=== PATIENT | female | born 2000 | race Caucasian/White ===

== ENCOUNTER 2021-12-16 18:04 | Emergency (ER) | payer BC, SELFPAY ==
[2021-12-16 18:06] VITALS: BP 132/91; PULSE 91; RESP 16; TEMP 37; O2SAT 99; BMI 19.8
[2021-12-16 19:09] VITALS: BP 132/91; PULSE 91; RESP 16; TEMP 37; O2SAT 99
--- NOTE | 2021-12-16 20:23 | EKG12_ITS ---
Test Reason : ABD PAIN Blood Pressure : / mmHG Vent. Rate : 058 BPM Atrial Rate : 058 BPM P-R Int : 130 ms QRS Dur : 090 ms QT Int : 420 ms P-R-T Axes : 086 067 041 degrees QTc Int : 412 ms Sinus bradycardia Nonspecific ST abnormality Abnormal ECG Confirmed by LEANNA FERNANDEZ, HEYDI ([id number]), online editor LAE WILSON ([id number]) on 12/18/2021 12:46:21 PM Referred By: Confirmed By:HEYDI RAM MD
--- NOTE | 2021-12-16 20:24 | EX.ED.DYSGE1 ---
HPI History of Present Illness Chief Complaint: Diarrhea Narrative Narrative: 21-year-old female with no significant medical history presenting for evaluation of some blood in her stool today and yesterday. She states he had 2 episodes of this. She denies any abdominal pain or rectal pain with this. She states she just finished her menstrual period yesterday and it was on time and normal. She had no change in this. Patient reports that she was evaluated in July of this year for a nearly 60 pound weight loss over few months. She had blood work done and the only abnormality was her bilirubin was slightly elevated. They checked her B12, CBC, CRP. She had a total abdominal ultrasound. She states that she was told she was fine and that the negative CRP actually was reassuring. She does report that she has a family history with her mother and father of Crohn's disease. She herself does not have this. She does state that she has not had any change in her weight since July. She is not experiencing any abdominal pain, nausea, vomiting. She states that the last 2 weeks she is actually felt better than she has in months. She does state that about 2 weeks ago she had 1 episode of fainting while she was standing in the kitchen with her significant other and 1 episode the next day. She is not had a repeat of these episodes of syncope. She does not report any chest pain or shortness of breath. No history of sudden cardiac in the family. PFS PFS Medical History no medical history Home Medications NK 12/16/21 [History Last Taken Unknown] Allergy/AdvReac Type Severity Reaction Status Date / Time No Known Allergies Allergy Verified 12/16/21 18:06 Social History Smoking Status: Current every day smoker tobacco type: e-cigarettes ROS ROS ED Constitutional Constitutional ED: Reports weight loss; Denies chills or fever(s) Eyes Eyes: Denies change in vision ENT ENT ED: Denies rhinorrhea or sore throat Cardiovascular Cardiovascular: Denies chest pain Respiratory/Chest Respiratory/Chest: Denies cough Gastrointestinal Gastrointestinal: Reports diarrhea; Denies abdominal pain, nausea or vomiting Genitourinary Genitourinary ED: Denies dysuria or hematuria Musculoskeletal Musculoskeletal: Denies arthralgias Integumentary Denies abscess Neurologic Neurologic: Denies headache(s) or paresthesias Psychiatric Psychiatric: Denies anxiety or depression EXAM Physical Exam Const Vital Signs: 12/16/21 18:06 12/16/21 19:09 12/16/21 20:46 Temperature 98.6 F 98.6 F Temperature Source Temporal Temporal Pulse Rate 91 91 Pulse Rate [Lying] 56 L Pulse Rate [Sitting (for 1 minute prior to obtaining)] 63 Pulse Rate [Standing (for 1 minute prior to obtaining)] 72 Respiratory Rate 16 16 Blood Pressure 132/91 H 132/91 H Blood Pressure [Lying] 122/72 H Blood Pressure [Sitting (for 1 minute prior to obtaining)] 135/92 H Blood Pressure [Standing (for 1 minute prior to obtaining)] 134/77 H Blood Pressure Mean 104 Blood Pressure Mean [Lying] 88 Blood Pressure Mean [Sitting (for 1 minute prior to obtaining)] 106 Blood Pressure Mean [Standing (for 1 minute prior to obtaining)] 96 Pulse Ox 99 99 Oxygen Delivery Method Room Air Room Air Positive well nourished General Appearance ED: NAD; Negative for pallor HEENT Reports moist mucous membranes Negative for trauma Eyes PERRL and EOMs intact bilaterally General Eye ED: Negative for pale conjunctiva or scleral icterus Chest Wall inspection of chest normal Resp normal respiratory effort and clear to auscultation bilaterally Auscultation: Negative for rales, rhonchi or wheezes Cardio regular rate and regular rhythm GI normal to inspection, nondistended, normoactive bowel sounds Palpation: soft Extremity normal to inspection General Extremety ED: Negative for edema General Extremity: Negative for edema Neuro oriented x3 and CN's II-XII intact bilaterally Sensorium / Orientation: alert Psych mental status grossly normal Skin no rashes or lesions noted General Skin Exam: Negative for jaundice or pallor MDM MDM MDM Narrative Medical decision making narrative: Patient presenting with diarrhea which has been a chronic issue. She does have blood in her stool today but denies any pain associated with it. She had some episodes of syncope 2 weeks ago but is not a return of this. Not lightheaded today. I did orthostatic vital signs and these are normal. EKG was obtained to rule out cardiac source and this is sinus bradycardia with a ventricular to 58 bpm without signs of ischemic change or dysrhythmia. This is on my interpretation. CBC shows a white blood cell count of 6.1, hemoglobin 12.4, hematocrit 37.1, platelets 23. Renal function and electrolytes are normal. Total bilirubin is 2.3 but patient was able to pull this up on her phone and she had this on her previous visit in July. This is unclear etiology but is not new. LFTs are otherwise normal. Urinalysis negative for infection. Patient's evaluation ultimately normal. Although the patient had some blood in her stool she is not orthostatic and she does not have anemia and she does not need a blood transfusion. I feel she be stable for outpatient follow-up. I recommended to her that she follow-up with GI. I will give her referral to Dr. Bloom. Patient stable for discharge at this time. Impression: 1. Hematochezia 2. History of syncope 3. Diarrhea 4. Elevated bilirubin Lab Data Attestation: I reviewed the patient's lab results. Labs: Laboratory Results - last 24 hr 12/16/21 12/16/21 12/16/21 18:45 18:45 18:45 WBC 6.1 RBC 4.19 L Hgb 12.4 Hct 37.1 MCV 88.5 MCH 29.6 MCHC 33.4 RDW Std Deviation 39.8 RDW Coeff of Bhavik 12.2 Plt Count 183 MPV 12.4 H Immature Gran % (Auto) 0.200 Neut % (Auto) 54.4 Lymph % (Auto) 35.4 [place] % (Auto) 8.2 Eos % (Auto) 1.1 Baso % (Auto) 0.7 Absolute Neuts (auto) 3.3 Absolute Lymphs (auto) 2.17 Nucleated RBC % 0 Sodium 141 Potassium 3.7 Chloride 109 H Carbon Dioxide 26.0 Anion Gap 6 BUN 8 Creatinine 0.87 Estim Creat Clear Calc 95.43 Est GFR (MDRD) Af Amer 106 Est GFR (MDRD) Non-Af 88 BUN/Creatinine Ratio 9.2 L Glucose 83 Calcium 9.0 Total Bilirubin 2.30 H AST 19 ALT 18 Alkaline Phosphatase 44 L Total Protein 7.0 Albumin 4.1 Globulin 2.9 Albumin/Globulin Ratio 1.4 Urine Color Yellow Urine Clarity Clear Urine pH 6.5 Ur Specific [place] 1.010 Urine Protein 15 H Urine Glucose (UA) Normal Urine Ketones Negative Urine Occult Blood Negative Urine Nitrite Negative Urine Bilirubin Negative Urine Urobilinogen Normal Ur Leukocyte Esterase Negative Urine RBC 0 SEEN Urine WBC 0 SEEN Ur Squamous Epith Cells 0-5 SEEN Urine Bacteria 0 SEEN Urine Mucus 1+ Discharge Plan Triage Chief Complaint: Diarrhea ED Provider: Sal Morgan Dx/Rx/DC Orders Prescriptions: No Action NK Primary Care Provider: WAI BERG Referrals: [facility] Doctor,Out of [NON-STAFF] -
[2021-12-16 20:34] LABS: Absolute Lymphocyte Count 2.17 X10^3/uL (0.83-4.51); Absolute Neutrophil Count 3.3 X10^3/uL (2.0-7.7); Bacteria 0 SEEN /hpf (None Seen); Basophil# 0.04 X10^3/uL; Basophil% 0.7 % (0-1); Eosinophil# 0.07 X10^3/uL; Eosinophils% 1.1 % (0-5); Hematocrit 37.1 % (37-47); Hemoglobin 12.4 g/dL (12.0-15.0); Lymphocyte # 2.17 X10^3/ul (0.83-4.51); Lymphocyte % 35.4 % (19-41); Mean Corp Hgb Conc 33.4 g/dL (32-36); Mean Corpuscular Hgb 29.6 pg (27.0-32.0); Mean Corpuscular Volume 88.5 fL (81-99); Mean Platelet Vol. 12.4 fl (6.2-12.0); Monocyte% 8.2 % (0-10); NRBC Flagged by Analyzer 0 % (0-5); Neutrophil # 3.34 X10^3/uL (2.7-7.7); Neutrophil % 54.4 % (47-70); Platelet Count 183 K/mm3 (150-450); RBC Distribution Width CV 12.2 % (11.6-14.6); RBC Distribution Width SD 39.8 fl (35.1-43.9); Red Blood Cells-Urine 0 SEEN /hpf (0-5); Red Blood Count 4.19 M/mm3 (4.2-5.4); White Blood Cells 0 SEEN /hpf (0-5); White Blood Count 6.1 K/mm3 (4.4-11.0)
[2021-12-16 20:36] LABS: Color, Urine Yellow (Yellow); Glucose, Dipstick Normal (Normal); Ketone-Dipstick Negative (Negative); Leukocyte Esterase-Dipstick Negative /ul (Negative); Nitrite-Dipstick Negative (Negative); Occult Blood-Urine Negative /ul (Negative); Protein-Dipstick 15 mg/dl (Negative); Urine Bilirubin Dipstick Negative (Negative); Urine Clarity Clear (Clear); Urine Urobilinogen Normal (Normal); Urine pH 6.5 (5.0 - 8.0)
[2021-12-16 20:46] VITALS: BP 122/72; BP 134/77; BP 135/92; PULSE 56; PULSE 63; PULSE 72
[2021-12-16 20:51] LABS: ALB/GLOB Ratio 1.4 RATIO (0.9-2.4); AST(SGOT) 19 U/L (15-37); Alanine Aminotransfer ALT/SGPT 18 U/L (13-56); Albumin, Serum 4.1 g/dL (3.2-5.0); Alkaline Phosphatase 44 U/L (45-117); Anion Gap 6 (5-15); BUN 8 mg/dL (7-18); BUN/Creat Ratio 9.2 RATIO (10-20); Chloride 109 mmol/L (98-107); Creatinine, Serum 0.87 mg/dL (0.55-1.02); EST Glomerular Filtration Rate 88 mL/min (>60); Est Glom Filt Rate - Afr Amer 106 mL/min (>60); Estimated Creatinine Clearance 95.43 ml/min; Globulin 2.9 g/dL (2.2-4.2); Glucose 83 mg/dL (74-106); Potassium 3.7 mmol/L (3.5-5.1); Sodium Level 141 mmol/L (136-145)
[2021-12-16 21:10] LABS: Mucous, Urine 1+ /hpf (<or=2+); Squamous Epithelial Cells - UA 0-5 SEEN /hpf (5-10)
[2021-12-16 21:53] VITALS: BP 129/78; PULSE 87; RESP 16; O2SAT 98
[2021-12-16 22:44] LABS: hCG Titer Quant., Serum < 1 mIU/mL (1-3)
== END 2021-12-16 21:53 | disposition home or self-care (01) ==
PROVIDERS: Emergency Provider Student in an Organized Health Care Education/Training Program; Visit Provider Student in an Organized Health Care Education/Training Program
DX: K92.1 Melena (principal); F17.290 Nicotine dependence, other tobacco product, uncomplicated; E80.7 Disorder of bilirubin metabolism, unspecified; R19.7 Diarrhea, unspecified
CPT/HCPCS: 80053; 81001; 84702; 85025; 93005; 99283; A4216